=== PATIENT | female | born 1940 | race Caucasian/White ===

== ENCOUNTER 2018-12-08 09:12 | Emergency (ER) | payer OTHER ==
[2018-12-08] MEDS ORDERED: TRAMADOL HCL 50 MG TAB ONE (11:29)
[2018-12-08] MEDS ORDERED: ACETAMINOPHEN 500 MG TAB ONE (11:32)
--- NOTE | 2018-12-08 11:32 | RAD REPORT ---
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 No evidence hardware loosening or infection. No acute fracture is seen.
--- NOTE | 2018-12-08 11:32 | RAD REPORT ---
EXAM DESCRIPTION: RAD - Foot Left 3 View - 12/08/2018 10:36 am CLINICAL HISTORY: fall;Pain Trauma, fall, pain COMPARISON: No comparisons FINDINGS: No acute fracture or dislocation of the left foot is seen.
--- NOTE | 2018-12-08 11:32 | RAD REPORT ---
EXAM DESCRIPTION: RAD - Knee Right 3 View - 12/08/2018 10:36 am CLINICAL HISTORY: fall;Pain Trauma, fall, pain COMPARISON: No comparisons FINDINGS: No acute fracture or dislocation seen. No suprapatellar joint effusion.
--- NOTE | 2018-12-08 11:32 | RAD REPORT ---
EXAM DESCRIPTION: RAD - Hip Left 2 View - 12/08/2018 10:36 am CLINICAL HISTORY: fall Fall, trauma, left hip pain COMPARISON: No comparisons FINDINGS: Left total hip arthroplasty is noted. No fracture or dislocation seen. No aggressive marro w lesion.
--- NOTE | 2018-12-08 11:32 | RAD REPORT ---
EXAM DESCRIPTION: RAD - Pelvis - 12/08/2018 10:36 am CLINICAL HISTORY: fall;Pain Trauma, fall COMPARISON: No comparisons FINDINGS: Bilateral hip total hip arthroplasties are noted. No acute fracture is identified.
--- NOTE | 2018-12-08 11:32 | RAD REPORT ---
EXAM DESCRIPTION: RAD - Knee Left 3 View - 12/08/2018 10:36 am CLINICAL HISTORY: fall;Pain Fall, trauma, knee pain COMPARISON: No comparisons FINDINGS: No acute fracture or dislocation is seen affecting the left knee. No joint effusion.
--- NOTE | 2018-12-08 11:33 | EDPHYS ---
Physician Documentation [facility] Name: Lidia Peñaloza Age: 78 yrs Sex: Female : 1940 Arrival Date: 12/08/2018 Time: 09:15 Bed 13 Private MD: Afshin Garcia ED Physician Khalif Lema HPI: 12/08 11:00 This 78 yrs old Female presents to ER via Wheelchair with complaints of Fall cp Injury, Foot Pain, Knee Pain. 11:00 Details of fall: The patient fell from an upright position, while walking. Onset: The cp symptoms/episode began/occurred yesterday. Associated injuries: The patient sustained left knee and right knee, swelling, left foot, painful injury, swelling, left posterior pelvic area, painful injury. 11:00 Severity of symptoms: in the emergency department the symptoms are unchanged, despite cp home interventions. Historical: - Allergies: 09:55 Cipro; iw 09:55 Codeine; iw 09:55 Latex, Natural Rubber; iw 09:55 Sulfa (Sulfonamide Antibiotics); iw - Home Meds: 09:55 Eliquis 5 mg oral tab 1 tab 2 times per day [Active]; sotalol 80 mg Oral tab 1 tab 2 iw times per day [Active]; amlodipine 10 mg tab 1 tab once daily [Active]; valsartan 320 mg oral tab once daily [Active]; levothyroxine 50 mcg tab 1 tab once daily [Active]; fenofibrate oral 145 mg oral once daily [Active]; temazepam 30 mg Oral cap 1 cap once daily [Active]; tramadol 50 mg oral tab as needed [Active]; - PMHx: 09:55 Hypertension; Atrial Fib; Hyperlipidemia; iw - PSHx: 09:55 colon resection; Cholecystectomy; Hysterectomy; Tonsillectomy; Hernia repair; total iw left hip replacement; - Immunization history:: Adult Immunizations up to date. - Social history:: Smoking status: Patient/guardian denies using tobacco. - Ebola Screening: : Patient negative for fever greater than or equal to 101.5 degrees Fahrenheit, and additional compatible Ebola Virus Disease symptoms Patient denies exposure to infectious person Patient denies travel to an Ebola-affected area in the 21 days before illness onset No symptoms or risks identified at this time. ROS: 11:05 Constitutional: Negative for body aches, chills, fever, poor PO intake. cp 11:05 Eyes: Negative for injury, pain, redness, and discharge. cp 11:05 ENT: Negative for drainage from ear(s), ear pain, sore throat, difficulty swallowing, difficulty handling secretions. 11:05 Cardiovascular: Negative for chest pain, palpitations. 11:05 Respiratory: Negative for cough, shortness of breath, wheezing. 11:05 Abdomen/GI: Negative for abdominal pain, nausea, vomiting, and diarrhea. 11:05 MS/extremity: Positive for pain, swelling, tenderness, of the left knee and right knee and left foot and posterior left pelvis. 11:05 Skin: Negative for cellulitis, rash. 11:05 Neuro: Negative for altered mental status, loss of consciousness, weakness. 11:05 All other systems are negative. Exam: 11:15 Constitutional: The patient appears in no acute distress, alert, awake, non-toxic, well cp developed, well nourished. 11:15 Head/face: Exam is negative for obvious evidence of injury or deformity. cp 11:15 Eyes: Periorbital structures: appear normal, Conjunctiva: normal, no exudate, no injection, Lids and lashes: appear normal, bilaterally. 11:15 ENT: External ear(s): are unremarkable, Nose: is normal, Mouth: Lips: moist, Oral mucosa: moist, Posterior pharynx: Airway: no evidence of obstruction, patent. 11:15 Neck: C-spine: vertebral tenderness, crepitus, is not appreciated, ROM/movement: is normal, is supple, without pain, no range of motions limitations, no nuchal rigidity. 11:15 Chest/axilla: Inspection: normal, Palpation: is normal, no crepitus, no tenderness. 11:15 Cardiovascular: Rate: normal, Rhythm: regular, Edema: is not appreciated, JVD: is not appreciated. 11:15 Respiratory: the patient does not display signs of respiratory distress, Respirations: normal, no use of accessory muscles, no retractions, no splinting, no tachypnea, labored breathing, is not present, Breath sounds: are clear throughout, no decreased breath sounds, no stridor, no wheezing. 11:15 Abdomen/GI: Exam negative for discomfort, distension, guarding, Inspection: abdomen appears normal. 11:15 Back: vertebral tenderness, is not appreciated. 11:15 Musculoskeletal/extremity: Extremities: grossly normal except: noted in the left knee and right knee and left foot: pain, swelling, tenderness. 11:15 Musculoskeletal/extremity: Extremities: noted in the posterior left pelvis: pain, tenderness. 11:15 Skin: cellulitis, is not appreciated, no rash present. 11:15 Neuro: Orientation: to person, place \T\ time. Mentation: is normal, Cerebellar function: is grossly normal, Motor: moves all fours, strength is normal, Sensation: is normal, Gait: is steady. Vital Signs: 09:55 BP 154 / 58; Pulse 68; Resp 16; Pulse Ox 100% on R/A; Weight 65.32 kg; Height 5 ft. 6 iw in. (167.64 cm); Pain 7/10; 09:55 Body Mass Index 23.24 (65.32 kg, 167.64 cm) iw MDM: 09:38 Patient medically screened. cp 11:00 Differential diagnosis: closed head injury, fracture, multiple trauma. cp 11:31 Data reviewed: vital signs, nurses notes, radiologic studies, plain films. cp 11:31 Test interpretation: by ED physician or midlevel provider: plain radiologic studies. cp Counseling: I had a detailed discussion with the patient and/or guardian regarding: the historical points, exam findings, and any diagnostic results supporting the discharge/admit diagnosis, radiology results, to return to the emergency department if symptoms worsen or persist or if there are any questions or concerns that arise at home. ED course: VSS. Xrays negative for acute fracture. Will discharge to home for continued monitoring. 12/08 09:56 Order name: XRAY Foot LEFT 3 View; Complete Time: 11:47 cp 12/08 09:56 Order name: XRAY Knee RIGHT 3 view; Complete Time: 11:47 cp 12/08 09:56 Order name: XRAY Knee LEFT 3 view; Complete Time: 11:47 cp 12/08 09:56 Order name: XRAY Pelvis; Complete Time: 11:47 cp 12/08 10:01 Order name: XRAY Hip LEFT 2 view; Complete Time: 11:47 cp 12/08 10:02 Order name: XRAY Hip RIGHT 2 view; Complete Time: 11:47 cp Administered Medications: 11:28 Drug: Tylenol 1000 mg Route: PO; jl7 11:56 Follow up: Response: No adverse reaction jl7 11:38 Not Given (Patient Refused): UltRAM 50 mg PO once; if no allergy jl7 Disposition: 12:10 Chart complete. cp Disposition: 12/08/18 11:32 Discharged to Home. Impression: Other slipping, tripping and stumbling and falls, Pain in knee - bilateral from fall, Pain in left foot - from fall, Pelvic pain from fall. - Condition is Stable. - Discharge Instructions: Musculoskeletal Pain, Foot Pain. - Prescriptions for Tramadol 50 mg Oral Tablet - take 1 tablet by ORAL route every 8 hours as needed; 15 tablet. - Medication Reconciliation Form, Thank You Letter, Antibiotic Education, Prescription Opioid Use form. - Follow up: Afshin Garcia MD; When: 5 - 6 days; Reason: pain continues. - Problem is new. - Symptoms have improved. Addendum: 12/09/2018 17:35 Co-signature as Attending Physician, Khalif Lema MD. g s Signatures: Dispatcher [employer] [facility] Prtety Rodrigues RN RN iw Page, Corey, PA PA Kristi Reed RN RN jl7 Starr, Gregory, MD MD Corrections: (The following items were deleted from the chart) 12/08 10:30 09:57 Hip Left 1 View+RAD.RAD.BRZ ordered. [facility] EDMT 10:30 09:57 Hip Right 1 View+RAD.RAD.BRZ ordered. [facility] EDMS 11:56 11:32 12/08/2018 11:32 Discharged to Home. Impression: Other slipping, tripping and jl7 stumbling and falls; Pain in knee - bilateral from fall; Pain in left foot - from fall; Pelvic pain from fall. Condition is Stable. Forms are Medication Reconciliation Form, Thank You Letter, Antibiotic Education, Prescription Opioid Use. Follow up: Afshin Garcia; When: 5 - 6 days; Reason: pain continues. Problem is new. Symptoms have improved. cp
--- NOTE | 2018-12-08 11:33 | ER ---
Nurse's Notes [facility] Name: Lidia Peñaloza Age: 78 yrs Sex: Female : 1940 Arrival Date: 12/08/2018 Time: 09:15 Bed 13 Private MD: Afshin Garcia Diagnosis: Other slipping, tripping and stumbling and falls;Pain in knee-bilateral from fall;Pain in left foot-from fall;Pelvic pain from fall Presentation: 12/08 09:48 Presenting complaint: Patient states: tripped over a step last night, fell forward and iw landed on knees, fell to left side, now has pain to left foot, left buttock, david knees. Transition of care: patient was not received from another setting of care. Onset of symptoms was December 07, 2018. Risk Assessment: Do you want to hurt yourself or someone else? Patient reports no desire to harm self or others. Initial Sepsis Screen: Does the patient meet any 2 criteria? No. Patient's initial sepsis screen is negative. Does the patient have a suspected source of infection? No. Patient's initial sepsis screen is negative. Care prior to arrival: None. 09:48 Method Of Arrival: Wheelchair iw 09:48 Acuity: DAVID 4 iw Historical: - Allergies: 09:55 Cipro; iw 09:55 Codeine; iw 09:55 Latex, Natural Rubber; iw 09:55 Sulfa (Sulfonamide Antibiotics); iw - Home Meds: 09:55 Eliquis 5 mg oral tab 1 tab 2 times per day [Active]; sotalol 80 mg Oral tab 1 tab 2 iw times per day [Active]; amlodipine 10 mg tab 1 tab once daily [Active]; valsartan 320 mg oral tab once daily [Active]; levothyroxine 50 mcg tab 1 tab once daily [Active]; fenofibrate oral 145 mg oral once daily [Active]; temazepam 30 mg Oral cap 1 cap once daily [Active]; tramadol 50 mg oral tab as needed [Active]; - PMHx: 09:55 Hypertension; Atrial Fib; Hyperlipidemia; iw - PSHx: 09:55 colon resection; Cholecystectomy; Hysterectomy; Tonsillectomy; Hernia repair; total iw left hip replacement; - Immunization history:: Adult Immunizations up to date. - Social history:: Smoking status: Patient/guardian denies using tobacco. - Ebola Screening: : Patient negative for fever greater than or equal to 101.5 degrees Fahrenheit, and additional compatible Ebola Virus Disease symptoms Patient denies exposure to infectious person Patient denies travel to an Ebola-affected area in the 21 days before illness onset No symptoms or risks identified at this time. Screenin:00 Abuse screen: Denies threats or abuse. Nutritional screening: No deficits noted. On. jl7 Tuberculosis screening: No symptoms or risk factors identified. Fall Risk Fall in past 12 months (25 points). Total Mathias Fall Scale indicates Low Risk Score (25-44 pts). Fall prevention measures have been instituted. Side Rails Up X 2 Placed close to Nursing Station Frequent Obs/Assesments occuring Family Present and informed to notify staff if they need to leave bedside As available Patient and Family Educated on Fall Prevention Program and strategies. Assessment: 10:00 General: Appears in no apparent distress. uncomfortable, Behavior is calm, cooperative, jl7 appropriate for age. Pain: Complains of pain in left hip, right hip, left medial ankle and left knee Pain currently is 7 out of 10 on a pain scale. Pain began 1 day ago. Is continuous. Neuro: Level of Consciousness is awake, alert, obeys commands, Oriented to person, place, time, situation. Cardiovascular: Patient's skin is warm and dry. Respiratory: Airway is patent Respiratory effort is even, unlabored, Respiratory pattern is regular, symmetrical. GI: No signs and/or symptoms were reported involving the gastrointestinal system. : No signs and/or symptoms were reported regarding the genitourinary system. EENT: No signs and/or symptoms were reported regarding the EENT system. Derm: Skin is pink, warm \T\ dry. Musculoskeletal: Range of motion: limited in left ankle. Vital Signs: 09:55 BP 154 / 58; Pulse 68; Resp 16; Pulse Ox 100% on R/A; Weight 65.32 kg; Height 5 ft. 6 iw in. (167.64 cm); Pain 7/10; 09:55 Body Mass Index 23.24 (65.32 kg, 167.64 cm) iw ED Course: 09:15 Patient arrived in ED. mr 09:16 Afshin Garcia MD is Private Physician. mr 09:38 Page, Antwan, PA is PHCP. cp 09:38 Khalif Lema MD is Attending Physician. cp 09:47 Kristi Reed, RN is Primary Nurse. jl7 09:51 Triage completed. iw 09:55 Arm band placed on. iw 10:00 Patient has correct armband on for positive identification. Bed in low position. Call jl7 light in reach. Side rails up X 1. Pulse ox on. NIBP on. 10:37 XRAY Foot LEFT 3 View In Process Unspecified. EDMS 10:37 XRAY Knee RIGHT 3 view In Process Unspecified. EDMS 10:37 XRAY Knee LEFT 3 view In Process Unspecified. EDMS 10:37 XRAY Pelvis In Process Unspecified. EDMS 10:37 XRAY Hip LEFT 2 view In Process Unspecified. EDMS 10:37 XRAY Hip RIGHT 2 view In Process Unspecified. EDMS 11:27 Afshin Garcia MD is Referral Physician. cp 11:55 No provider procedures requiring assistance completed. Patient did not have IV access jl7 during this emergency room visit. Administered Medications: 11:28 Drug: Tylenol 1000 mg Route: PO; jl7 11:56 Follow up: Response: No adverse reaction jl7 11:38 Not Given (Patient Refused): UltRAM 50 mg PO once; if no allergy jl7 Outcome: 11:32 Discharge ordered by . cp 11:55 Discharged to home ambulatory, with family. jl7 11:55 Condition: stable 11:55 Discharge instructions given to patient, family, Instructed on discharge instructions, follow up and referral plans. medication usage, Demonstrated understanding of instructions, follow-up care, medications, Prescriptions given X 1. 11:56 Patient left the ED. jl7 Signatures: Dispatcher [employer] Dinah Boland Irene, RN RN Antwan Samuel PA PA cp Leal, Jahala, RN RN jl7
== END 2018-12-08 11:56 | disposition home or self-care (01) ==
LOC: ER 09:12
DX: M25.562 Pain in left knee (principal); M25.561 Pain in right knee; M79.672 Pain in left foot; R10.2 Pelvic and perineal pain; W01.0XXA Fall on same level from slipping, tripping and stumbling without subsequent striking against object, initial encounter; Y93.01 Activity, walking, marching and hiking; Y92.9 Unspecified place or not applicable; Z79.01 Long term (current) use of anticoagulants; Z88.2 Allergy status to sulfonamides; Z88.5 Allergy status to narcotic agent; Z91.040 Latex allergy status; Z91.048 Other nonmedicinal substance allergy status; E78.5 Hyperlipidemia, unspecified; I10 Essential (primary) hypertension; I48.91 Unspecified atrial fibrillation
CPT/HCPCS: 72170; 99283

== ENCOUNTER 2020-04-11 08:24 | Emergency (ER) | payer OTHER ==
[2020-04-11 08:54] LABS: Urine Blood TRACE (NEG); Urine Glucose NEGATIVE (NEG); Urine Protein NEGATIVE (NEG); Urine pH 6.5 (5.0-7.0)
--- NOTE | 2020-04-11 09:02 | EDPHYS ---
Physician Documentation [facility] Name: Lidia Peñaloza Age: 79 yrs Sex: Female : 1940 Arrival Date: 04/11/2020 Time: 08:27 Bed 6 Private MD: Afshin Garcia ED Physician Yusuf Rothman HPI: 04/11 09:04 This 79 yrs old Female presents to ER via Ambulatory with complaints of snw Urinary Problem. 09:04 The patient presents with urinary symptoms, dysuria, frequency, urgency. Onset: The snw symptoms/episode began/occurred suddenly, this morning. Associated signs and symptoms: Pertinent positives: dysuria, Pertinent negatives: fever. Severity of symptoms: At their worst the symptoms were moderate. It is unknown whether or not the patient has had similar symptoms in the past. It is unknown whether or not the patient has recently seen a physician. takes Eliquis. Historical: - Allergies: 08:50 Cipro; em 08:50 Codeine; em 08:50 Latex, Natural Rubber; em 08:50 Sulfa (Sulfonamide Antibiotics); em - PMHx: 08:50 Atrial Fib; Hyperlipidemia; Hypertension; em - PSHx: 08:50 Hernia repair; colon resection; Cholecystectomy; Hysterectomy; Tonsillectomy; total em left hip replacement; Appendectomy; - Immunization history:: Adult Immunizations up to date. - Social history:: Smoking status: Patient denies any tobacco usage or history of. ROS: 09:03 Constitutional: Negative for fever, chills, and weight loss, Eyes: Negative for injury, snw pain, redness, and discharge, ENT: Negative for injury, pain, and discharge, Neck: Negative for injury, pain, and swelling, Cardiovascular: Negative for chest pain, palpitations, and edema, Respiratory: Negative for shortness of breath, cough, wheezing, and pleuritic chest pain, Abdomen/GI: Negative for abdominal pain, nausea, vomiting, diarrhea, and constipation, Back: Negative for injury and pain, MS/Extremity: Negative for injury and deformity, Skin: Negative for injury, rash, and discoloration, Neuro: Negative for headache, weakness, numbness, tingling, and seizure, Psych: Negative for depression, anxiety, suicide ideation, homicidal ideation, and hallucinations. 09:03 : Positive for urinary symptoms, urinary frequency, burning with urination. Exam: 09:03 Constitutional: This is a well developed, well nourished patient who is awake, alert, snw and in no acute distress. Head/Face: Normocephalic, atraumatic. Eyes: Pupils equal round and reactive to light, extra-ocular motions intact. Lids and lashes normal. Conjunctiva and sclera are non-icteric and not injected. Cornea within normal limits. Periorbital areas with no swelling, redness, or edema. ENT: Nares patent. No nasal discharge, no septal abnormalities noted. Tympanic membranes are normal and external auditory canals are clear. Oropharynx with no redness, swelling, or masses, exudates, or evidence of obstruction, uvula midline. Mucous membranes moist. Neck: Trachea midline, no thyromegaly or masses palpated, and no cervical lymphadenopathy. Supple, full range of motion without nuchal rigidity, or vertebral point tenderness. No Meningismus. Chest/axilla: Normal chest wall appearance and motion. Nontender with no deformity. No lesions are appreciated. Cardiovascular: Regular rate and rhythm with a normal S1 and S2. No gallops, murmurs, or rubs. Normal PMI, no JVD. No pulse deficits. Respiratory: Lungs have equal breath sounds bilaterally, clear to auscultation and percussion. No rales, rhonchi or wheezes noted. No increased work of breathing, no retractions or nasal flaring. Abdomen/GI: Soft, non-tender, with normal bowel sounds. No distension or tympany. No guarding or rebound. No evidence of tenderness throughout. Back: No spinal tenderness. No costovertebral tenderness. Full range of motion. Skin: Warm, dry with normal turgor. Normal color with no rashes, no lesions, and no evidence of cellulitis. MS/ Extremity: Pulses equal, no cyanosis. Neurovascular intact. Full, normal range of motion. Neuro: Awake and alert, GCS 15, oriented to person, place, time, and situation. Cranial nerves II-XII grossly intact. Motor strength 5/5 in all extremities. Sensory grossly intact. Cerebellar exam normal. Normal gait. Psych: Awake, alert, with orientation to person, place and time. Behavior, mood, and affect are within normal limits. Vital Signs: 08:47 BP 171 / 61; Pulse 66; Resp 18; Temp 98.3; Pulse Ox 100% on R/A; Weight 63.5 kg; Height em 5 ft. 6 in. (167.64 cm); Pain /10; 08:47 Body Mass Index 22.60 (63.50 kg, 167.64 cm) em MDM: 08:31 Patient medically screened. snw 09:02 Data reviewed: vital signs, nurses notes. Data interpreted: Pulse oximetry: on room air snw is 100 %. Interpretation: normal. Counseling: I had a detailed discussion with the patient and/or guardian regarding: the historical points, exam findings, and any diagnostic results supporting the discharge/admit diagnosis, lab results, the need for outpatient follow up, to return to the emergency department if symptoms worsen or persist or if there are any questions or concerns that arise at home. Special discussion: Based on the history and exam findings, there is no indication for further emergent testing or inpatient evaluation. I discussed with the patient/guardian the need to see the primary care provider for further evaluation of the symptoms. 04/11 08:47 Order name: Urine Dipstick--Ancillary (enter results); Complete Time: 09:00 em1 04/11 08:47 Order name: Urine Microscopic Only; Complete Time: 10:02 em 04/11 08:47 Order name: Urine Culture em Administered Medications: 09:30 Drug: Rocephin (cefTRIAXone) 1 grams Route: IM; Site: right gluteus; em 09:54 Follow up: Response: No adverse reaction em Disposition: 11:09 Co-signature as Attending Physician, Yusuf Rothman MD I agree with the assessment and kdr plan of care. Disposition: 04/11/20 09:01 Discharged to Home. Impression: Urinary tract infection, site not specified, Dysuria. - Condition is Stable. - Discharge Instructions: Dysuria, Urinary Tract Infection, Adult, Rehydration, Elderly. - Prescriptions for cefpodoxime 200 mg Oral Tablet - take 1 tablet by ORAL route every 12 hours with food; 14 tablet. - Medication Reconciliation Form, Thank You Letter, Antibiotic Education, Prescription Opioid Use form. - Follow up: Afshin Garcia MD; When: 2 - 3 days; Reason: Recheck today's complaints, Continuance of care, Re-evaluation by your physician. Signatures: Dispatcher [employer] Yusuf Traore MD MD [facility] Natasha Orellana, RADIOLOGY PHYSICIAN ASSISTANT-C RADIOLOGY PHYSICIAN ASSISTANT-Tylerw Parviz Rodney, RN RN em Corrections: (The following items were deleted from the chart) 10:06 09:01 04/11/2020 09:01 Discharged to Home. Impression: Urinary tract infection, site em not specified; Dysuria. Condition is Stable. Forms are Medication Reconciliation Form, Thank You Letter, Antibiotic Education, Prescription Opioid Use. Follow up: Afshin Garcia; When: 2 - 3 days; Reason: Recheck today's complaints, Continuance of care, Re-evaluation by your physician. snw
--- NOTE | 2020-04-11 09:02 | ER ---
Nurse's Notes [facility] Name: Lidia Peñaloza Age: 79 yrs Sex: Female : 1940 Arrival Date: 04/11/2020 Time: 08:27 Bed 6 Private MD: Afshin Garcia Diagnosis: Urinary tract infection, site not specified;Dysuria Presentation: 04/11 08:47 Chief complaint: Patient states: "I think I have a bladder infection, it jacobson when I em urinate, feels like knives down there" symptoms began this morning, denies fever, N/V. Coronavirus screen: Proceed with normal triage. Patient denies a cough. Patient denies shortness of breath or difficulty breathing. Patient denies measured and/or subjective temperature greater than 100.4F prior to today's visit. Patient denies travel on a cruise ship or to a country the [facility] currently lists as an affected area. Patient denies contact with known and/or suspected case of COVID-19. Ebola Screen: Patient negative for fever greater than or equal to 101.5 degrees Fahrenheit, and additional compatible Ebola Virus Disease symptoms Patient denies exposure to infectious person. Patient denies travel to an Ebola-affected area in the 21 days before illness onset. No symptoms or risks identified at this time. Initial Sepsis Screen: Does the patient meet any 2 criteria? No. Patient's initial sepsis screen is negative. Does the patient have a suspected source of infection? No. Patient's initial sepsis screen is negative. Risk Assessment: Do you want to hurt yourself or someone else? Patient reports no desire to harm self or others. Onset of symptoms was April 11, 2020. 08:47 Method Of Arrival: Ambulatory em 08:47 Acuity: DAVID 4 em Historical: - Allergies: 08:50 Cipro; em 08:50 Codeine; em 08:50 Latex, Natural Rubber; em 08:50 Sulfa (Sulfonamide Antibiotics); em - PMHx: 08:50 Atrial Fib; Hyperlipidemia; Hypertension; em - PSHx: 08:50 Hernia repair; colon resection; Cholecystectomy; Hysterectomy; Tonsillectomy; total em left hip replacement; Appendectomy; - Immunization history:: Adult Immunizations up to date. - Social history:: Smoking status: Patient denies any tobacco usage or history of. Screenin:50 Abuse screen: Denies threats or abuse. Nutritional screening: No deficits noted. em Tuberculosis screening: No symptoms or risk factors identified. Fall Risk Ambulatory Aid- Crutches/Cane/Walker (15 pts). Total Mathias Fall Scale indicates No Risk (0-24 pts). Assessment: 08:45 General: Appears in no apparent distress. comfortable, Behavior is calm, cooperative, em appropriate for age, Denies fever. Pain: Complains of pain in pelvis Pain currently is 1 out of 10 on a pain scale. Neuro: Level of Consciousness is awake, alert, obeys commands, Oriented to person, place, time, situation, Appropriate for age. Cardiovascular: Capillary refill < 3 seconds Patient's skin is warm and dry. Respiratory: Airway is patent Respiratory effort is even, unlabored, Respiratory pattern is regular, symmetrical. GI: Patient currently denies nausea, vomiting. : Reports burning with urination. Derm: Skin is intact, is fragile, is thin, Skin is pink, warm \\T\\ dry. Musculoskeletal: Capillary refill < 3 seconds, Range of motion: intact in all extremities. 09:31 Reassessment: waiting shot time, will be discharged afterwards. em Vital Signs: 08:47 BP 171 / 61; Pulse 66; Resp 18; Temp 98.3; Pulse Ox 100% on R/A; Weight 63.5 kg; Height em 5 ft. 6 in. (167.64 cm); Pain 1/10; 08:47 Body Mass Index 22.60 (63.50 kg, 167.64 cm) em ED Course: 08:27 Patient arrived in ED. as 08:27 Afshin Garcia MD is Private Physician. as 08:31 [facility]C [facility] snw 08:31 Yusuf Rothman MD is Attending Physician. snw 08:32 Parviz Rodney, TOR is Primary Nurse. em 08:47 Urine collected: clean catch specimen, clear, wen colored. jb1 08:49 Triage completed. em 08:50 Arm band placed on. em 08:50 Patient has correct armband on for positive identification. Adult w/ patient. em 09:01 Afshin Garcia MD is Referral Physician. snw 09:34 No provider procedures requiring assistance completed. Patient did not have IV access em during this emergency room visit. Administered Medications: 09:30 Drug: Rocephin (cefTRIAXone) 1 grams Route: IM; Site: right gluteus; em 09:54 Follow up: Response: No adverse reaction em Outcome: 09:01 Discharge ordered by MD. steen 09:54 Discharged to home ambulatory, with family. em 09:54 Condition: good 09:54 Discharge instructions given to patient, family, Instructed on discharge instructions, follow up and referral plans. medication usage, Demonstrated understanding of instructions, follow-up care, medications, Prescriptions given X 1. 10:06 Patient left the ED. em Addendum: 04/14/2020 19:14 Addendum: Culture Results: Positive urine culture. Bacteria is resistant to, has i w intermediate sensitivity, or is not tested against prescribed antibiotics. Report given to MARISELA for further evaluation and then to track worker for follow up with patient. Phone call Attempt #1 pt states she is till having burning with urination and difficulty walking bc of the pain, Yury. PA notified, called in prescription for Augmentin 875 PO BID X 10 days, no refills. Signatures: Kenji Rojo jb1 Natasha Orellana, NOTEMAN-C NOTEMAN-Csnw Parviz Rodney, RN RN Laure Ibarra Irene, TOR RN
[2020-04-11] MEDS ORDERED: CEFTRIAXONE 1000 MG/VIAL ONE (09:32)
[2020-04-11] MEDS ORDERED: LIDOCAINE 1% MPF 2 ML AMPULE ONE (09:32)
[2020-04-11 09:58] LABS: Urine Bacteria LOADED /HPF (<20); Urine Culture Reflex Order NOT NEEDED; Urine RBC <5 /HPF (NONE SEEN)
[2020-04-11 10:11] VITALS: BP 171/61; TEMP 98.3; O2SAT 100
--- OUTSIDE RECORDS SUMMARY | 2020-04-11 14:00 | XMS REPORT | Clinical Summary ---
:1940 Author Organization [facility] Address [address] [place] [address] Care Team Providers Name Role Phone MD Jose Primary Care Provider Allergies Active Allergy Reactions Severity Noted Date Comments Adhesive Tape-Silicones 11/09/2018 Ciprofloxacin 11/09/2018 Codeine 11/09/2018 Latex 11/09/2018 Sulfa (Sulfonamide Antibiotics) 9 Medications Medication Sig Dispensed Refills Start Date End Date Status ELIQUIS 5 mg tablet Take 5 mg by 6 10/07/2018 Active mouth 2 (two) times a day. sotalol (BETAPACE) 80 Take 80 mg by 3 08/17/2018 Active MG tablet mouth 2 (two) times a day. amLODIPine (NORVASC) 10 Take 10 mg by 3 10/03/2018 Active mg tablet mouth nightly. valsartan (DIOVAN) 320 Take 320 mg by 5 10/28/2018 Active MG tablet mouth every morning. fenofibrate (TRICOR) Take 145 mg by 3 09/10/2018 Active 145 MG tablet mouth daily. calcitonin, salmon, 1 spray into each 0 Active (MIACALCIN) 200 nostril daily. unit/actuation nasal spray calcium Take 1,200 mg by 0 Act saleem carbonate/vitamin D3 mouth daily. (CALCIUM 500 + D, D3, ORAL) cholecalciferol, Take 1,000 mg by 0 Active vitamin D3, (VITAMIN D3 mouth. ORAL) BIOTIN ORAL Take 5,000 mcg by 0 Active mouth. folic acid 0.8 mg Take by mouth 0 Active capsule daily. levothyroxine Take 50 mcg by 3 10/24/2018 Active (SYNTHROID, LEVOXYL) 50 mouth daily. mcg tablet Active Problems Problem Noted Date Fuchs' corneal dystrophy, right eye 12/13/2018 Social History Tobacco Use Types Packs/Day Years Used Date Never Smoker Smokeless Tobacco: Never Used Alcohol Use Drinks/Week oz/Week Comments No Alcohol Habits Answer Date Recorded How often do you have a drink containing alcohol? Never 11/26/2018 How many drinks containing alcohol do you have on a typical Not asked day when you are drinking? How often do you have six or more drinks on one occasion? No t asked Sex Assigned at Date Recorded Not on file Job Start Date Occupation Industry Not on file Not on file Not on file Travel History Travel Start Travel End No recent travel history available. 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
== END 2020-04-11 10:06 | disposition home or self-care (01) ==
LOC: ER 08:24
DX: N39.0 Urinary tract infection, site not specified (principal); I10 Essential (primary) hypertension; E78.5 Hyperlipidemia, unspecified; I48.91 Unspecified atrial fibrillation; Z79.01 Long term (current) use of anticoagulants; Z88.1 Allergy status to other antibiotic agents; Z88.2 Allergy status to sulfonamides; Z88.5 Allergy status to narcotic agent; Z91.040 Latex allergy status; Z91.048 Other nonmedicinal substance allergy status
CPT/HCPCS: 87088; 87086; 87077 ×2; 87186 ×2; 96372; 99283; J2001; 81003; 81015

== ENCOUNTER 2024-02-16 06:30 | Day surgery (SDC) | payer OTHER ==
[2024-02-14 13:42] LABS: Absolute Basophils 0.1 K/uL (0-0.5); Absolute Eosinophils 0.3 K/uL (0-0.5); Absolute Lymphocytes (CBC) 1.2 K/uL (0.7-4.9); Absolute Monocytes 0.5 K/uL (0.1-1.3); Absolute Neutrophil 3.6 K/uL (1.8-8.0); Basophils % 1.3 % (0-1.3); Eosinophils % 5.8 % (0-4.4); Hemoglobin 11.5 g/dL (12.0-15.0); Lymphocytes % 21.4 % (15.3-44.8); MCH 33.5 pg (27.0-35.0); MCHC 32.9 g/dL (32.0-36.0); MCV 101.7 fL (80-100); MPV 7.7 fL (7.6-11.3); Monocytes % 8.1 % (3.3-12.3); Neutrophils % 63.4 % (41.7-73.7); Platelets 361 thou/uL (152-406); RBC Red Blood Cell Count 3.44 M/uL (3.86-4.86); Red Cell Distribution Width 14.1 % (12.1-15.2)
[2024-02-14 13:46] LABS: PT Prothrombin Time 16.5 SECONDS (9.5-12.5); PTT, Activated Partial Thromb 42.4 SECONDS (24.3-36.9); Protime INR 1.52
[2024-02-16] MEDS ORDERED: NA CHLORIDE 0.9% 500 ML ONE (06:36)
[2024-02-16] MEDS ORDERED: LIDOCAINE 1% MPF 5 ML VIAL ONE (07:39)
[2024-02-16] MEDS ORDERED: propofoL 200 MG/20 ML VIAL IV ONE (07:39)
[2024-02-16] MEDS ORDERED: AMIODARONE IN DEXTROSE,ISO-OSM 0 MG/0 ML BAG IV ONE (07:43)
[2024-02-16] MEDS ORDERED: HYDRALAZINE HCL 20 MG/ML VIAL ONE (07:44)
[2024-02-16] MEDS ORDERED: Phenylephrine HCl 10 MG/ML 1 ML VIAL ONE (07:44)
[2024-02-16] MEDS ORDERED: ATROPINE SULF 1 MG/10 ML SYR IV ONE (07:44)
[2024-02-16] MEDS ORDERED: METOPROLOL TARTRATE 5 MG/5 ML INJ IV ONE (07:44)
[2024-02-16 09:11] VITALS: TEMP 97.1
[2024-02-16 09:47] VITALS: BP 137/69; O2SAT 99
--- NOTE | 2024-02-16 14:06 | TEE ---
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 NORMAL LEFT ATRIAL APPENDAGE, NO CLOT, NO THROMBUS 2. MODERATE MITRAL REGURGITATION 3. SEVERE ENLARGED LEFT ATRIUM TECHNOLOGIST: AR PRETTY
--- NOTE | 2024-02-19 12:20 | OP ---
Date of Procedure: 02/16/2024 Surgeon: Oni Zuniga Procedure Performed: Transesophageal echocardiogram-guided cardioversion. Indication For Procedure: Atrial flutter. Complication: None. Estimated Blood Loss: None. Sedation Time: 15 minutes, done by Anesthesia team. Description Of Procedure: After risks, benefits, and alternatives were explained to patient, patient agreed to proceed with the procedure and signed informed consent. The patient was brought to the OR back in stable condition. Time out was performed. Sedation was noted by anesthesia team. A JOE pr obe inserted, images obtained, and then JOE probe was out. Next, synchronized cardioversion with 200 joules of energy was delivered. The patient converted into sinus rhythm. EKG done and confirmed si nus rhythm. The patient was moved back to recovery in stable condition. Assessment And Plan: Atrial fibrillation, status post successful JOE cardioversion. Plan will be to continue medical management. SHELTON/VIANEY Voice ID: [id number] Report ID: [id number]
--- NOTE | 2024-02-19 13:06 | EKG ---
Test Date: 2024-02-16 Test Time: 08:34:03 Emt/Dispatcher: DOT MEASUREMENT RESULTS: Intervals: Rate: 62 NC: 212 QRSD: 142 QT: 484 QTc: 491 [place]: P: 89 NC: 212 QRS: -12 T: 96 INTERPRETIVE STATEMENTS: Sinus rhythm with 1st degree AV block Left bundle branch block Abnormal ECG Compared to ECG 02/16/2024 07:54:41 First degree AV block now present Atrial fibrillation no longer present Left-axis deviation no longer present Electronically Signed On 02-19-24 12:58:01 CDT by Remy Luke
--- NOTE | 2024-02-19 13:06 | EKG ---
Test Date: 2024-02-16 Test Time: 07:54:41 Community Fundraiser: DOT MEASUREMENT RESULTS: Intervals: Rate: 103 [place]: QRSD: 140 QT: 404 QTc: 529 [place]: P: VT: QRS: -60 T: 92 INTERPRETIVE STATEMENTS: Atrial fibrillation with rapid ventricular response Left axis deviation Left bundle branch block Abnormal ECG Compared to ECG 06/29/2023 02:58:53 Left-axis deviation now present Sinus rhythm no longer present Electronically Signed On 02-19-24 12:58:15 CDT by Remy Luke
== END 2024-02-16 09:40 | disposition home or self-care (01) ==
LOC: CCL 06:30
PROVIDERS: ATTEND Internal Medicine Interventional Cardiology
PROC: 5A2204Z Restoration of Cardiac Rhythm, Single (ICD-10-PCS; principal; 2024-02-16)
DX: I48.4 Atypical atrial flutter (principal); I48.0 Paroxysmal atrial fibrillation; I34.0 Nonrheumatic mitral (valve) insufficiency; I44.0 Atrioventricular block, first degree; I44.7 Left bundle-branch block, unspecified; I10 Essential (primary) hypertension; E78.5 Hyperlipidemia, unspecified; I65.21 Occlusion and stenosis of right carotid artery; I27.20 Pulmonary hypertension, unspecified; E03.9 Hypothyroidism, unspecified; Z79.01 Long term (current) use of anticoagulants; Z79.899 Other long term (current) drug therapy; Z88.1 Allergy status to other antibiotic agents; Z88.2 Allergy status to sulfonamides; Z88.5 Allergy status to narcotic agent; Z91.040 Latex allergy status
CPT/HCPCS: 93005 ×2; 93312; 85025; 80048; 36415; 85610; 85730; 92960; J2704; J2001; J7040; J0282; J0360; J0461; J2371

== ENCOUNTER 2024-08-05 09:55 | Emergency (ER) | payer OTHER ==
--- NOTE | 2024-08-05 10:17 | EDPHYS ---
Physician Documentation [facility] Name: Lidia Peñaloza Age: 84 yrs Sex: Female : 1940 Arrival Date: 08/05/2024 Time: 09:55 Bed 11 Private MD: ED Physician Urbano Colmenares HPI: 08/05 10:17 This 84 yrs old Female presents to ER via Unassigned with complaints of ec2 Staple Removal. 10:17 Patient arrives today for evaluation of madan. Patient reports that she had madan ec2 placed multiple weeks ago, placed by me, still has [address] No issues, no drainage, no fevers.. Historical: - Allergies: 10:20 Sulfa (Sulfonamide Antibiotics); hb 10:20 Codeine; hb 10:20 Latex, Natural Rubber; hb - Immunization history:: Adult Immunizations up to date. - Infectious Disease History:: Denies. - Social history:: Smoking status: Patient denies any tobacco usage or history of. ROS: 10:17 Constitutional: as per hpi ec2 Exam: 10:17 Constitutional: GEN: NAD Head: atraumatic Eyes: EOMI Ears: External ears are ec2 normal. CV: regular rate LUNGS: no respiratory distress ABD: non-distended SKIN: Well-healed wound to the occiput, [address] MSK: no evidence of trauma Vital Signs: 10:17 BP 193 / 69; Pulse 63; Resp 16; Temp 97.6; Pulse Ox 99% on R/A; bc6 Procedures: 10:18 Suture/Staple removal: Removed 1 madan, from back of head, site appears well healed, ec2 dressed with Patient tolerated well. MDM: 10:17 Patient medically screened. ec2 10:17 Data reviewed: vital signs. ED course: Patient arrives today for evaluation of her ec2 madan. Examination remarkable for well-appearing nontoxic and vigorous otherwise in no acute distress with a reassuring examination. [address] which I removed without issue. Patient discharged home. Return precautions given.. Administered Medications: No medications were administered Disposition Summary: 08/05/24 10:17 Discharge Ordered Notes: Location: Home ec2 Condition: Stable ec2 Diagnosis - Encounter for Staple Removal ec2 Followup: ec2 - With: Private Physician - When: - Reason: Re-evaluation by your physician Discharge Instructions: - Discharge Summary Sheet ec2 - Sutures, Madan, or Adhesive Wound Closure, [id number] ec2 Forms: - Medication Reconciliation Form ec2 - Antibiotic Education ec2 - Prescription Opioid Use ec2 - Patient Portal Instructions ec2 - Leadership Thank You Letter ec2 Signatures: Mae Quiroga RN RN Urbano Colmenares MD MD ec2
--- NOTE | 2024-08-05 10:17 | ER ---
Nurse's Notes [facility] Name: Lidia Peñaloza Age: 84 yrs Sex: Female : 1940 Arrival Date: 08/05/2024 Time: 09:55 Bed 11 Private MD: Diagnosis: Encounter for Staple Removal Presentation: 08/05 10:12 Chief complaint: Received sutures to back of head 3 weeks ago, here for removal. hb Coronavirus screen: At this time, the client does not indicate any symptoms associated with coronavirus-19. Ebola Screen: No symptoms or risks identified at this time. Initial Sepsis Screen: Does the patient meet any 2 criteria? No. Patient's initial sepsis screen is negative. Does the patient have a suspected source of infection? No. Patient's initial sepsis screen is negative. Risk Assessment: Do you want to hurt yourself or someone else? Patient reports no desire to harm self or others. Onset of symptoms was August 05, 2024. 10:12 Method Of Arrival: Ambulatory hb 10:12 Acuity: DAVID 4 hb Historical: - Allergies: 10:20 Sulfa (Sulfonamide Antibiotics); hb 10:20 Codeine; hb 10:20 Latex, Natural Rubber; hb - Immunization history:: Adult Immunizations up to date. - Infectious Disease History:: Denies. - Social history:: Smoking status: Patient denies any tobacco usage or history of. Screenin:15 [facility] ED Fall Risk Assessment (Adult) History of falling in the last 3 months, hb including since admission No falls in past 3 months (0 pts) Confusion or Disorientation No (0 pts) Intoxicated or Sedated No (0 pts) Impaired Gait No (0 pts) Mobility Assist Device Used No (0 pt) Altered Elimination No (0 pt) Score/Fall Risk Level 0 - 2 = Low Risk Oriented to surroundings, Maintained a safe environment, Educated pt \T\ family on fall prevention, incl call for assistance when getting out of bed. Abuse screen: Denies threats or abuse. Denies injuries from another. Nutritional screening: No deficits noted. Tuberculosis screening: No symptoms or risk factors identified. Assessment: 10:15 General: Appears in no apparent distress. Behavior is calm, cooperative. Pain: Denies hb pain. Neuro: Level of Consciousness is awake, alert, obeys commands, Oriented to person, place, time, situation. Cardiovascular: Patient's skin is warm and dry. Respiratory: Respiratory effort is even, unlabored, Respiratory pattern is regular, symmetrical. Vital Signs: 10:17 BP 193 / 69; Pulse 63; Resp 16; Temp 97.6; Pulse Ox 99% on R/A; bc6 ED Course: 09:58 Patient arrived in ED. mr 10:00 Urbano Colmenares MD is Attending Physician. ec2 10:15 Patient has correct armband on for positive identification. Provided Education on: hb wound care. 10:15 No provider procedures requiring assistance completed. Patient did not have IV access hb during this emergency room visit. 10:20 Triage completed. hb 10:20 Arm band placed on. hb 10:25 Mae Quiroga, RN is Primary Nurse. hb Administered Medications: No medications were administered Medication: 10:15 VIS not applicable for this client. hb Outcome: 10:17 Discharge ordered by . ec2 10:22 Discharged to home ambulatory, with significant other, hb 10:22 Condition: stable 10:22 Discharge instructions given to patient, Instructed on discharge instructions, follow up and referral plans. medication usage, Demonstrated understanding of instructions, follow-up care, medications, 10:25 Patient left the ED. hb Signatures: Mendes Dinah, Reg Reg mr Mae Quiroga, TOR RN [facility] Urbano Colmenares MD MD ec2
[2024-08-05 11:12] VITALS: BP 193/69; TEMP 97.6; O2SAT 99
== END 2024-08-05 10:25 | disposition home or self-care (01) ==
LOC: ER 09:55
DX: Z48.02 Encounter for removal of sutures (principal)